=== PATIENT | female | born 1970 | race African-American/Black ===

== ENCOUNTER 2016-09-15 21:36 | Inpatient (IN) | payer MEDICAID ==
[~2016-09-15] VITALS: Ht 166.4 cm; Wt 61.0 kg
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
[2016-09-15] MEDS ORDERED: IV NORMAL SALINE 1000 ML BAG IV ONE (22:15)
[2016-09-15] MEDS ORDERED: CEFTRIAXONE 1 G in IV DEXTROSE 5% 50 ML IV ONE (22:15)
[2016-09-15] MEDS ORDERED: AZITHROMYCIN IV 500 MG in IV DEXTROSE 5% 250 ML IV ONE (22:15)
[2016-09-15] MEDS ORDERED: ALBUTEROL SULFATE 2.5 MG/3 ML NEBU NEB ONE ×2 (22:15→22:45)
[2016-09-15] MEDS ORDERED: ALBUTEROL SULFATE 2.5 MG/3 ML NEBU ONE ×2 (22:25→22:44)
[2016-09-15 23:43] LABS: CREATININE 0.9 mg/dL (0.6-1.3); POTASSIUM 3.6 mmol/L (3.5-5.1)
[2016-09-15 23:49] LABS: BILIRUBIN,DIRECT 0.1 mg/dL (0.0-0.2); BILIRUBIN,TOTAL 0.4 mg/dL (0.2-1.0); TOTAL PROTEIN, SERUM 9.2 g/dL (6.4-8.2)
[2016-09-16] MEDS ORDERED: ONDANSETRON 4 MG/2 ML VIAL IV ONE
[2016-09-16] MEDS ORDERED: MORPHINE SULFATE 2 MG/1 ML DISP.SYRIN IM ONE
[2016-09-16 00:01] LABS: EOSINOPHILS % (AUTO) 0.1 % (0.0-7.0); HEMATOCRIT 42.6 % (37-47); HEMOGLOBIN 13.9 G/DL (12.0-16.0); LYMPHOCYTES # (AUTO) 2.5 K/UL (0.8-4.8); LYMPHOCYTES % (AUTO) 15.6 % (20.5-51.5); MEAN CORPUSCULAR HEMOGLOBIN 30.3 UUG (27.0-31.0); MEAN CORPUSCULAR HGB CONC 33 g/dL (32.0-37.0); MONOCYTES # (AUTO) 0.8 K/UL (0.1-1.30); MONOCYTES % (AUTO) 5.2 % (0.0-11.0); NEUTROPHILS # (AUTO) 12.4 K/UL (1.8-8.9); NEUTROPHILS % (AUTO) 79.1 % (38.5-71.5); PLATELET COUNT (AUTO) 247 K/UL (150-450); RED BLOOD CELL COUNT(AUTO) 4.58 MIL/UL (4.2-5.4); WHITE BLOOD COUNT (AUTO) 15.7 K/UL (4.0-11.2)
[2016-09-16 00:06] LABS: BAND % (MANUAL) 4 % (0-10); LYMPHOCYTES % (MANUAL) 18 % (20-40); MONOCYTES % (MANUAL) 7 % (2-10); NEUTROPHILS % (MANUAL) 71 % (42-75)
[2016-09-16] MEDS ORDERED: ONDANSETRON 4 MG/2 ML VIAL ONE (00:12)
[2016-09-16] MEDS ORDERED: CEFTRIAXONE 1 G VIAL ONE (00:12)
[2016-09-16] MEDS ORDERED: MORPHINE SULFATE 2 MG/1 ML DISP.SYRIN ONE (00:12)
--- NOTE | 2016-09-16 00:16 | NUR ---
BATOOL IV APPEARS TO BE INFILTRATED; PT HAS SWELLING AND PAIN AT IV SITE; IV REMOVED AND PRESSURE DRESSING APPLIED AND WARM COMPRESS PLACED. NOTIFIED
[2016-09-16] MEDS ORDERED: HYDROMORPHONE 1 MG/1 ML DISP.SYRIN IV ONE (00:45)
[2016-09-16] MEDS ORDERED: HYDROMORPHONE 1 MG/1 ML DISP.SYRIN ONE (00:55)
--- NOTE | 2016-09-16 00:58 | NUR ---
Call placed to [facility], Dr. Olmos will be paged.
[2016-09-16] MEDS ORDERED: IV NS 1000 ML 1,000 ML IV PRN (01:04)
[2016-09-16] MEDS ORDERED: ONDANSETRON 4 MG/2 ML VIAL IV PRN (01:15)
[2016-09-16] MEDS ORDERED: MAGNESIUM HYDROXIDE 30 ML LIQUID UDC PO PRN (01:15)
[2016-09-16] MEDS ORDERED: ALBUTEROL SULFATE 2.5 MG/3 ML NEBU NEB PRN (01:15)
[2016-09-16] MEDS ORDERED: CEFTRIAXONE 1 G in IV DEXTROSE 5% 50 ML IV SCH ×2 (01:15→21:00)
[2016-09-16] MEDS ORDERED: ACETAMINOPHEN 325 MG TABLET PO PRN (01:15)
[2016-09-16] MEDS ORDERED: Z GUARD REMEDY PASTE 57 GM TUBE TOP PRN (01:15)
[2016-09-16] MEDS ORDERED: AZITHROMYCIN 500 MG VIAL IV ONE (01:17)
[2016-09-16] MEDS ORDERED: IV NORMAL SALINE 1000 ML BAG IV ONE (01:30)
[2016-09-16] MEDS ORDERED: ACETAMINOPHEN ES 500 MG TABLET PO ONE (01:30)
--- NOTE | 2016-09-16 01:40 | NUR ---
Pt. admitted to TELEMETRY 225 , under care of Dr. RAGLAND Belongs List completed. SBAR TO Amrita JUNIOR RN
[2016-09-16] MEDS ORDERED: ACETAMINOPHEN ES 500 MG TABLET ONE (01:42)
--- NOTE | 2016-09-16 01:55 | NUR ---
Admitted patient to Telemetry with admitting DX: PNA. Routine admission care done. Plan of care initiated.
[2016-09-16] MEDS: HYDROCODONE/APAP 5-325MG TABLET PO PRN ×3 (03:58→16:20)
[2016-09-16] MEDS ORDERED: HYDROCODONE/APAP 5-325MG TABLET ONE (04:08)
--- NOTE | 2016-09-16 04:09 | NUR ---
Medicated with [facility] for C/O generalized pain. Will monitor.
--- NOTE | 2016-09-16 05:36 | NUR ---
Still awake. Pain meds effective. No further complaint presented. all needs attended and met. No significant event reported all night. Continue care as planned.
[2016-09-16] MEDS ORDERED: AZITHROMYCIN 250 MG TABLET PO SCH ×3 (07:00→23:00)
[2016-09-16] MEDS ORDERED: PANTOPRAZOLE SODIUM 40 MG TABLET.DR PO SCH (07:17)
--- NOTE | 2016-09-16 07:47 | NUR ---
PATIENT RECEIVED IN ROOM ALERT AWAKE AND ORIENTED IN NO ACUTE DISTRESS. A. FIB WITH HR 97 ON GAUGE CONTROLLER. RESPIRATIONS EVEN AND UNLABORED. PRODUCTIVE COUGH NOTED. IVF RUNNING. IV TO L IJ INTACT AND PATENT.
[2016-09-16 11:47] VITALS: BP 107/72
--- NOTE | 2016-09-16 14:46 | NUR ---
PATIENT SEEN BY DR. JARRELL. DETAILED REPORT GIVEN.
[2016-09-16 15:13] VITALS: BP 93/57
[2016-09-16] MEDS ORDERED: LEVO500T2 PO (16:49)
[2016-09-16] MEDS ORDERED: FLUT1DIS28 IH (16:49)
[2016-09-16] MEDS ORDERED: ALBU6.7H INH (16:49)
--- NOTE | 2016-09-16 17:15 | NUR ---
DISCHARGING PATIENT HOME IN A STABLE CONDITION. VSS. PAIN MANAGED WITH MEDICATION PRESCRIBED. DISCHARGE INSTRUCTION PROVIDED. LIST OF BELONGING SIGNED AND ALL WAS TAKEN. IV REMOVED, PRESSURE APPLIED AND NO BLEEDING NOTED, DRESSING APPLIED. PATIENT REFUSED TO SPEAK TO PHARMACIST REGARDING NEW PRESCRIPTIONS. LEAVING VIA PRIVATE TRANSPORTATION.
== END 2016-09-16 17:05 | disposition home or self-care (01) | DRG 139 ==
LOC: ER 21:41 → TELE 09-16 01:25
PROVIDERS: ADMIT Internal Medicine; ATTEND Internal Medicine
DX: J18.9 Pneumonia, unspecified organism (principal); M32.9 Systemic lupus erythematosus, unspecified; Z86.74 Personal history of sudden cardiac arrest; E87.1 Hypo-osmolality and hyponatremia; J44.0 Chronic obstructive pulmonary disease with (acute) lower respiratory infection; F17.210 Nicotine dependence, cigarettes, uncomplicated; Z88.8 Allergy status to other drugs, medicaments and biological substances; Z98.890 Other specified postprocedural states; Z79.899 Other long term (current) drug therapy; Z86.19 Personal history of other infectious and parasitic diseases
CPT/HCPCS: 36415; 70030-TC; 71010; 83605; 85025; 85730; 87040; 87806; 93005; A4217; J0456; J0696; J1170; J2270; J2405; J7030; J7060; Q0144

== ENCOUNTER 2018-08-01 22:46 | Inpatient (IN) | payer MEDICAID, OTHER ==
[~2018-08-01] VITALS: Ht 165.1 cm; Wt 54.4 kg
[~2018-08-01 22:46] MED LIST: ALBU6.7H INH; FLUT1DIS28 IH; LEVO500T2 PO
[2018-08-01] MEDS ORDERED: methylPREDNISolone SOD SUCC 125 MG/2 ML VIAL IV ONE (23:15)
[2018-08-01] MEDS ORDERED: IV NORMAL SALINE 1000 ML BAG IV ONE (23:15)
[2018-08-01] MEDS ORDERED: IPRATROPIUM BROMIDE 0.5 MG/2.5 ML NEBU NEB ONE (23:15)
[2018-08-01] MEDS ORDERED: ALBUTEROL SULFATE 2.5 MG/3 ML NEBU NEB ONE (23:15)
[2018-08-01] MEDS ORDERED: ALBUTEROL SULFATE 2.5 MG/3 ML NEBU ONE (23:21)
[2018-08-01] MEDS ORDERED: IPRATROPIUM BROMIDE 0.5 MG/2.5 ML NEBU ONE (23:21)
[2018-08-01 23:36] LABS: BASOPHILS # (AUTO) 0.1 K/uL (0.0-8.0); EOSINOPHILS # (AUTO) 0.4 K/uL (0.0-0.7); EOSINOPHILS % (AUTO) 6.4 % (0.0-7.0); HEMATOCRIT 34.5 % (31.2-41.9); HEMOGLOBIN 11.3 g/dL (10.9-14.3); LYMPHOCYTES # (AUTO) 1.9 K/uL (20.0-40.0); LYMPHOCYTES % (AUTO) 30.4 % (20.5-51.5); MEAN CORPUSCULAR HEMOGLOBIN 29.1 uug (24.7-32.8); MEAN CORPUSCULAR HGB CONC 33 g/dL (32.3-35.6); MEAN CORPUSCULAR VOLUME 89.1 fL (75.5-95.3); MONOCYTES # (AUTO) 0.6 K/uL (2.0-10.0); MONOCYTES % (AUTO) 9.6 % (0.0-11.0); NEUTROPHILS # (AUTO) 3.3 K/uL (1.8-8.9); NEUTROPHILS % (AUTO) 52.6 % (38.5-71.5); PLATELET COUNT (AUTO) 345 K/uL (179-408); RED BLOOD CELL COUNT(AUTO) 3.88 MIL/uL (3.63-4.92); WHITE BLOOD COUNT (AUTO) 6.4 K/uL (3.8-11.8)
[2018-08-01 23:41] LABS: CREATININE 0.8 mg/dL (0.6-1.3); POTASSIUM 3.7 mmol/L (3.5-5.1)
[2018-08-01 23:54] LABS: BILIRUBIN,DIRECT 0.2 mg/dL (0.0-0.2); BILIRUBIN,TOTAL 0.3 mg/dL (0.2-1.0); TOTAL PROTEIN, SERUM 7.7 g/dL (6.4-8.2)
[2018-08-02] MEDS ORDERED: methylPREDNISolone SOD SUCC 125 MG/2 ML VIAL ONE (00:04)
[2018-08-02] MEDS ORDERED: ACETAMINOPHEN 325 MG TABLET PO PRN (01:00)
[2018-08-02] MEDS ORDERED: CEFTRIAXONE 1 G in IV DEXTROSE 5% 50 ML IV ONE (01:00)
[2018-08-02] MEDS ORDERED: ONDANSETRON 4 MG/2 ML VIAL IV PRN (01:00)
[2018-08-02] MEDS ORDERED: AZITHROMYCIN IV 500 MG in IV DEXTROSE 5% 250 ML IV ONE (01:00)
[2018-08-02] MEDS ORDERED: MAGNESIUM HYDROXIDE 30 ML LIQUID UDC PO PRN (01:00)
[2018-08-02] MEDS ORDERED: HYDROCODONE/APAP 5-325MG TABLET PO PRN (01:00)
[2018-08-02] MEDS: AZITHROMYCIN IV 500 MG in IV DEXTROSE 5% 250 ML IV SCH (01:00)
[2018-08-02] MEDS ORDERED: VALA100026 PO (01:07)
[2018-08-02] MEDS ORDERED: BICT1TAB PO (01:07)
[2018-08-02] MEDS ORDERED: PREG300C PO (01:07)
[2018-08-02] MEDS ORDERED: DORA100T PO (01:07)
[2018-08-02] MEDS ORDERED: RANI150T8 PO (01:07)
[2018-08-02] MEDS ORDERED: VORI200T4 PO (01:07)
[2018-08-02] MEDS ORDERED: ARIP10TA9 PO (01:07)
[2018-08-02] MEDS ORDERED: SERT100T PO (01:07)
[2018-08-02] MEDS ORDERED: SULF1TAB48 PO (01:07)
[2018-08-02] MEDS ORDERED: AZITHROMYCIN 500 MG VIAL IV ONE (01:42)
[2018-08-02] MEDS ORDERED: CEFTRIAXONE 1 G VIAL ONE (01:42)
[2018-08-02] MEDS: CEFTRIAXONE 1 G in IV DEXTROSE 5% 50 ML IV SCH (01:50)
[2018-08-02 05:31] VITALS: BP 113/78
[2018-08-02] MEDS: PANTOPRAZOLE SODIUM 40 MG TABLET.DR PO SCH (06:13)
[2018-08-02 07:23] LABS: MAGNESIUM 1.9 mg/dL (1.8-2.4)
[2018-08-02 07:53] LABS: THYROID STIMULATING HORMONE 0.408 mIU/mL (0.358-3.740)
[2018-08-02] MEDS ORDERED: FLUTICASONE/SALMETEROL 250/50 INHALER IH SCH (09:00)
[2018-08-02] MEDS: FLUTICASONE/VILANTEROL 1 EACH BLST.W.DEV INH SCH (09:31)
[2018-08-02] MEDS: IPRATROPIUM BROMIDE 0.5 MG/2.5 ML NEBU NEB PRN ×3 (09:39→21:06)
[2018-08-02] MEDS: ALBUTEROL SULFATE 2.5 MG/3 ML NEBU NEB PRN ×3 (09:39→21:06)
[2018-08-02 11:00] VITALS: BP 123/67
[2018-08-02] MEDS: GUAIFENESIN/DEXTROMETHORPHAN 5 ML UDC PO PRN (12:57)
[2018-08-02 15:36] VITALS: BP 117/75
[2018-08-02] MEDS: MORPHINE SULFATE 2 MG/1 ML DISP.SYRIN IV PRN ×2 (17:38→22:20)
[2018-08-02] MEDS ORDERED: MISCELLANEOUS MED XX PRN ×4 (17:45→18:30)
[2018-08-02 20:00] VITALS: BP 126/78
[2018-08-02] MEDS ORDERED: ACYCLOVIR 200 MG CAPSULE PO ONE (20:45)
[2018-08-02] MEDS: ALPRAZOLAM 0.5 MG TABLET PO PRN (21:22)
[2018-08-02] MEDS: ARIPIPRAZOLE 10 MG TABLET PO SCH (21:22)
[2018-08-03] VITALS: BP 120/80
[2018-08-03] MEDS: CEFTRIAXONE 1 G in IV DEXTROSE 5% 50 ML IV SCH (01:37)
[2018-08-03] MEDS: AZITHROMYCIN IV 500 MG in IV DEXTROSE 5% 250 ML IV SCH (01:54)
[2018-08-03 04:00] VITALS: BP 125/86
[2018-08-03] MEDS: PANTOPRAZOLE SODIUM 40 MG TABLET.DR PO SCH (06:11)
[2018-08-03 06:59] LABS: BASOPHILS % (AUTO) 0.4 % (0.0-2.0); EOSINOPHILS # (AUTO) 0.1 K/uL (0.0-0.7); EOSINOPHILS % (AUTO) 0.7 % (0.0-7.0); HEMATOCRIT 33.2 % (31.2-41.9); HEMOGLOBIN 10.8 g/dL (10.9-14.3); LYMPHOCYTES # (AUTO) 1.3 K/uL (20.0-40.0); MEAN CORPUSCULAR HEMOGLOBIN 29.6 uug (24.7-32.8); MEAN CORPUSCULAR HGB CONC 33 g/dL (32.3-35.6); MEAN CORPUSCULAR VOLUME 90.9 fL (75.5-95.3); MONOCYTES # (AUTO) 0.6 K/uL (2.0-10.0); MONOCYTES % (AUTO) 8.3 % (0.0-11.0); NEUTROPHILS # (AUTO) 5.6 K/uL (1.8-8.9); NEUTROPHILS % (AUTO) 73.6 % (38.5-71.5); PLATELET COUNT (AUTO) 330 K/uL (179-408); RED BLOOD CELL COUNT(AUTO) 3.65 MIL/uL (3.63-4.92); WHITE BLOOD COUNT (AUTO) 7.6 K/uL (3.8-11.8)
[2018-08-03 07:11] LABS: BILIRUBIN,TOTAL 0.2 mg/dL (0.2-1.0); CREATININE 0.7 mg/dL (0.6-1.3); MAGNESIUM 1.6 mg/dL (1.8-2.4); PHOSPHOROUS 2.8 mg/dL (2.5-4.9); POTASSIUM 3.7 mmol/L (3.5-5.1); TOTAL PROTEIN, SERUM 6.8 g/dL (6.4-8.2)
[2018-08-03] MEDS: SERTRALINE HCL 100 MG TABLET PO SCH (08:49)
[2018-08-03] MEDS: SULFAMETH/TRIMETH 800/160 MG TABLET PO SCH (08:49)
[2018-08-03] MEDS: FLUTICASONE/VILANTEROL 1 EACH BLST.W.DEV INH SCH (08:51)
[2018-08-03] MEDS ORDERED: DORAVIRINE 100 MG PO SCH (09:00)
[2018-08-03] MEDS ORDERED: VORICONAZOLE 200 MG TABLET PO SCH (09:00)
[2018-08-03] MEDS: MORPHINE SULFATE 2 MG/1 ML DISP.SYRIN IV PRN (09:09)
[2018-08-03] MEDS: GUAIFENESIN/DEXTROMETHORPHAN 5 ML UDC PO PRN (09:09)
[2018-08-03 11:00] VITALS: BP 124/81
[2018-08-03] MEDS: MAGNESIUM SULFATE/D5W 100 ML IV SCH ×2 (12:49→14:26)
[2018-08-03] MEDS: VORICONAZOLE 200 MG TABLET PO SCH ×2 (12:57→20:28)
[2018-08-03] MEDS: PREGABALIN 100 MG CAPSULE PO SCH ×2 (14:29→20:28)
[2018-08-03] MEDS: VALACYCLOVIR HCL 500 MG TABLET PO SCH ×2 (14:29→20:28)
[2018-08-03] MEDS: ALBUTEROL SULFATE 2.5 MG/3 ML NEBU NEB PRN (15:14)
[2018-08-03] MEDS: IPRATROPIUM BROMIDE 0.5 MG/2.5 ML NEBU NEB PRN (15:14)
[2018-08-03 15:30] VITALS: BP 126/87
[2018-08-03 20:00] VITALS: BP 124/84
[2018-08-03] MEDS: ARIPIPRAZOLE 10 MG TABLET PO SCH (20:27)
[2018-08-04] MEDS: CEFTRIAXONE 1 G in IV DEXTROSE 5% 50 ML IV SCH (00:30)
[2018-08-04] MEDS: AZITHROMYCIN IV 500 MG in IV DEXTROSE 5% 250 ML IV SCH (01:17)
[2018-08-04 03:52] LABS: *BASOS 0 % (Not Estab.); *EOS 3 % (Not Estab.); *EOS ABSOLUTE 0.2 x10E3/uL (0.0-0.4); *HCT 34.8 % (34.0-46.6); *HGB 11.6 g/dL (11.1-15.9); *IMMATURE GRANULOCYTES 0 % (Not Estab.); *LYMPHOCYTES 22 % (Not Estab.); *LYMPHOCYTES ABSOLUTE 1.3 x10E3/uL (0.7-3.1); *MCH 29.4 pg (26.6-33.0); *MCHC 33.3 g/dL (31.5-35.7); *MCV 88 fL (79-97); *MONOCYTES 11 % (Not Estab.); *MONOCYTES ABSOLUTE 0.7 x10E3/uL (0.1-0.9); *NEUTROPHILS 64 % (Not Estab.); *NEUTROPHILS ABSOLUTE 3.8 x10E3/uL (1.4-7.0); *PLT 396 x10E3/uL (150-450); *RBC 3.94 x10E6/uL (3.77-5.28); *RDW 15.4 % (12.3-15.4)
[2018-08-04 04:00] VITALS: BP 107/73
[2018-08-04] MEDS: PANTOPRAZOLE SODIUM 40 MG TABLET.DR PO SCH (06:01)
[2018-08-04 07:03] LABS: HEMATOCRIT 37.6 % (31.2-41.9); HEMOGLOBIN 12.1 g/dL (10.9-14.3); MEAN CORPUSCULAR HEMOGLOBIN 28.8 uug (24.7-32.8); MEAN CORPUSCULAR HGB CONC 32 g/dL (32.3-35.6); MEAN CORPUSCULAR VOLUME 89.3 fL (75.5-95.3); RED BLOOD CELL COUNT(AUTO) 4.22 MIL/uL (3.63-4.92); WHITE BLOOD COUNT (AUTO) 6.4 K/uL (3.8-11.8)
[2018-08-04 07:04] LABS: BASOPHILS % (AUTO) 0.6 % (0.0-2.0); EOSINOPHILS # (AUTO) 0.3 K/uL (0.0-0.7); EOSINOPHILS % (AUTO) 4.4 % (0.0-7.0); LYMPHOCYTES # (AUTO) 1.4 K/uL (20.0-40.0); LYMPHOCYTES % (AUTO) 22.2 % (20.5-51.5); MONOCYTES # (AUTO) 0.7 K/uL (2.0-10.0); MONOCYTES % (AUTO) 10.8 % (0.0-11.0); PLATELET COUNT (AUTO) 335 K/uL (179-408)
[2018-08-04 07:15] LABS: CREATININE 0.7 mg/dL (0.6-1.3); MAGNESIUM 1.8 mg/dL (1.8-2.4); PHOSPHOROUS 3.1 mg/dL (2.5-4.9); POTASSIUM 3.9 mmol/L (3.5-5.1)
[2018-08-04] MEDS: SULFAMETH/TRIMETH 800/160 MG TABLET PO SCH (08:59)
[2018-08-04] MEDS: FLUTICASONE/VILANTEROL 1 EACH BLST.W.DEV INH SCH (08:59)
[2018-08-04] MEDS: SERTRALINE HCL 100 MG TABLET PO SCH (08:59)
[2018-08-04] MEDS: VORICONAZOLE 200 MG TABLET PO SCH ×2 (09:00→21:31)
[2018-08-04] MEDS: VALACYCLOVIR HCL 500 MG TABLET PO SCH ×2 (09:00→21:33)
[2018-08-04] MEDS: MORPHINE SULFATE 2 MG/1 ML DISP.SYRIN IV PRN ×2 (09:24→18:33)
[2018-08-04] MEDS: PREGABALIN 100 MG CAPSULE PO SCH ×2 (09:30→21:31)
[2018-08-04 11:32] VITALS: BP 105/72
[2018-08-04 14:09] LABS: *HELPER T-LYMPH MARKR(CD4)ABSO 239 /uL (359-1519); *HELPER T-LYNPH MARKER CD4)% 18.4 % (30.8-58.5)
[2018-08-04] MEDS: ALBUTEROL SULFATE 2.5 MG/3 ML NEBU NEB PRN ×2 (15:37→19:06)
[2018-08-04] MEDS: IPRATROPIUM BROMIDE 0.5 MG/2.5 ML NEBU NEB PRN ×2 (15:37→19:06)
[2018-08-04 15:40] VITALS: BP 114/70
[2018-08-04] MEDS: GUAIFENESIN/DEXTROMETHORPHAN 5 ML UDC PO PRN (18:07)
[2018-08-04] MEDS: ALPRAZOLAM 0.5 MG TABLET PO PRN (18:15)
[2018-08-04 20:00] VITALS: BP 105/80
[2018-08-04] MEDS: ARIPIPRAZOLE 10 MG TABLET PO SCH (21:31)
[2018-08-04] MEDS: BIKTARVY PO SCH (21:33)
[2018-08-04] MEDS: PIFELTRO 100 MG PO SCH (21:33)
[2018-08-05] MEDS: CEFTRIAXONE 1 G in IV DEXTROSE 5% 50 ML IV SCH (00:07)
[2018-08-05] MEDS: AZITHROMYCIN IV 500 MG in IV DEXTROSE 5% 250 ML IV SCH (01:41)
[2018-08-05 04:51] VITALS: BP 107/68
[2018-08-05] MEDS: PANTOPRAZOLE SODIUM 40 MG TABLET.DR PO SCH (06:03)
[2018-08-05] MEDS: FLUTICASONE/VILANTEROL 1 EACH BLST.W.DEV INH SCH (09:15)
[2018-08-05] MEDS: SULFAMETH/TRIMETH 800/160 MG TABLET PO SCH (09:15)
[2018-08-05] MEDS: PREGABALIN 100 MG CAPSULE PO SCH (09:15)
[2018-08-05] MEDS: SERTRALINE HCL 100 MG TABLET PO SCH (09:15)
[2018-08-05] MEDS: VORICONAZOLE 200 MG TABLET PO SCH (09:15)
[2018-08-05] MEDS: BIKTARVY PO SCH (09:16)
[2018-08-05] MEDS: PIFELTRO 100 MG PO SCH (09:16)
[2018-08-05] MEDS: VALACYCLOVIR HCL 500 MG TABLET PO SCH (09:16)
[2018-08-05 09:19] VITALS: BP 118/67
[2018-08-05] MEDS: IPRATROPIUM BROMIDE 0.5 MG/2.5 ML NEBU NEB PRN (09:46)
[2018-08-05] MEDS: ALBUTEROL SULFATE 2.5 MG/3 ML NEBU NEB PRN (09:46)
[2018-08-05] MEDS ORDERED: BUPR1PAT3 TP (10:29)
[2018-08-05 11:30] VITALS: BP 124/70
[2018-08-05] MEDS ORDERED: LEVO500T90 PO (11:31)
[2018-08-05] MEDS: GUAIFENESIN/DEXTROMETHORPHAN 5 ML UDC PO PRN (13:15)
== END 2018-08-05 14:30 | disposition home or self-care (01) | DRG 140 ==
LOC: ER 22:47 → TELE3 08-02 02:12 → MEDSURG3 08-03 11:55
PROVIDERS: ADMIT Nurse Practitioner Acute Care; ATTEND Internal Medicine
DX: J44.0 Chronic obstructive pulmonary disease with (acute) lower respiratory infection (principal); J15.9 Unspecified bacterial pneumonia; M32.9 Systemic lupus erythematosus, unspecified; Z86.74 Personal history of sudden cardiac arrest; F17.210 Nicotine dependence, cigarettes, uncomplicated; Z91.19 Patient's noncompliance with other medical treatment and regimen
CPT/HCPCS: 36415; 70030-TC; 71045; 83735; 84100; 84443; 85025; 86361; 87040; 87400; 87536; 93005; 94640; A4663; G0378; J0456; J0696; J2270; J2930; J3475; J3490; J3590; J7060

== ENCOUNTER 2021-12-28 15:47 | Inpatient (IN) | payer MEDICAID, OTHER ==
[~2021-12-28] VITALS: Ht 165.1 cm; Wt 53.1 kg
[~2021-12-28 15:47] MED LIST changes: -ALBU6.7H INH; +ALBU6.7H9 INH; +ARIP10TA9 PO; +BICT1TAB PO; +BUPR1PAT3 TP; +DORA100T PO; -LEVO500T2 PO; +LEVO500T90 PO; +PREG300C PO; +RANI150T8 PO; +SERT100T PO; +SULF1TAB48 PO; +VALA100026 PO; +VORI200T4 PO
[2021-12-28] MEDS ORDERED: CEFEPIME HCL 1 G in IV DEXTROSE 5% 50 ML IV ONE (16:15)
[2021-12-28] MEDS ORDERED: ACETAMINOPHEN ES 500 MG TABLET PO ONE (16:15)
[2021-12-28] MEDS ORDERED: VANCOMYCIN IV 1,000 MG in IV DEXTROSE 5% 250 ML IV ONE (16:15)
[2021-12-28] MEDS ORDERED: IV NORMAL SALINE 1000 ML BAG IV ONE (16:15)
[2021-12-28 16:47] LABS: HEMATOCRIT 40.1 % (31.2-41.9); MEAN CORPUSCULAR HEMOGLOBIN 34.2 uug (24.7-32.8); MEAN CORPUSCULAR VOLUME 99.7 fL (75.5-95.3); PLATELET COUNT (AUTO) 192 K/uL (179-408)
[2021-12-28 16:50] LABS: CARBON DIOXIDE 29 mmol/L (21-32); CHLORIDE 100 mmol/L (98-107); CREATININE 0.9 mg/dL (0.6-1.3); GLUCOSE 86 mg/dL (74-106); POTASSIUM 3.4 mmol/L (3.5-5.1); UREA NITROGEN, BLOOD 9 mg/dL (7-18)
[2021-12-28 17:01] LABS: ALANINE AMINOTRANSFERASE 26 U/L (14-59); ALKALINE PHOSPHATASE 73 U/L (50-136); ASPARTATE AMINOTRANSFERASE 22 U/L (15-37); BILIRUBIN,DIRECT 0.2 mg/dL (0.0-0.2); BILIRUBIN,TOTAL 0.8 mg/dL (0.2-1.0)
[2021-12-28 17:22] LABS: *BILIRUBIN,URIN NEGATIVE (NEGATIVE); *BLOOD, URINE 3+ (NEGATIVE); *CLARITY,URINE CLEAR (CLEAR); *COLOR,URINE YELLOW (YELLOW); *KETONES,URINE NEGATIVE (NEGATIVE); *UROBILINOGEN,URINE 0.2 E.U./dl (NORMAL); LEUKOCYTE ESTERASE ,URINE 1+ (NEGATIVE); NITRITE, URINE NEGATIVE (NEGATIVE); PH,URINE 7.5 (5.0-8.0); UGLUCOSE NEGATIVE (NEGATIVE)
[2021-12-28] MEDS ORDERED: CEFEPIME HCL 1 G VIAL ONE ×2 (17:26→23:44)
[2021-12-28] MEDS ORDERED: VANCOMYCIN IV 200 ML ONE (17:26)
[2021-12-28 17:29] LABS: BACTERIA,URINE FEW /HPF (NONE SEEN); SQUAMOUS EPITHELIAL CELL,UR FEW /HPF (NONE SEEN)
--- NOTE | 2021-12-28 17:30 | NUR ---
Per housekeeper, midline nurse to come at 8PM.
--- NOTE | 2021-12-28 18:57 | NUR ---
Contacted [facility] for Panal call. Dr Pyle is corporate communications associate. - Av (student nurse)
--- NOTE | 2021-12-28 19:10 | NUR ---
Received report from Lamar HOFF.
[2021-12-28] MEDS ORDERED: FAMO40TA7 PO (19:33)
[2021-12-28] MEDS ORDERED: FOLI1TAB94 PO (19:33)
[2021-12-28] MEDS ORDERED: GABA600T12 PO (19:33)
[2021-12-28] MEDS ORDERED: MULT-596 PO (19:33)
[2021-12-28] MEDS ORDERED: FLUT1BLS6 PO (19:33)
[2021-12-28] MEDS ORDERED: LINA145C PO (19:33)
[2021-12-28] MEDS ORDERED: MAGN400C PO (19:33)
[2021-12-28] MEDS ORDERED: MV-M1TAB18 PO (19:33)
--- NOTE | 2021-12-28 19:45 | NUR ---
Dr. Youngblood on panel call with Dr. Pyle.
[2021-12-28] MEDS ORDERED: ACETAMINOPHEN 325 MG TABLET PO PRN (20:00)
[2021-12-28] MEDS ORDERED: ONDANSETRON 4 MG/2 ML VIAL IV PRN (20:00)
[2021-12-28] MEDS ORDERED: MAGNESIUM HYDROXIDE 30 ML LIQUID UDC PO PRN (20:00)
[2021-12-28] MEDS ORDERED: HYDROCODONE/APAP 5-325MG TABLET PO PRN (20:00)
[2021-12-28] MEDS ORDERED: REMEDY ESSENTIAL ZINC PASTE 113 GM TP PRN (20:00)
--- NOTE | 2021-12-28 20:18 | NUR ---
Midline nurse at bedside.
[2021-12-28] MEDS ORDERED: SWABABLE VALVE TRANSFER SET EA MC ONE (20:33)
[2021-12-28] MEDS ORDERED: IV NORMAL SALINE 250 ML IV ONE (20:33)
[2021-12-28] MEDS ORDERED: IOHEXOL 350 100 ML INFUS..BTL ONE (20:33)
--- NOTE | 2021-12-28 20:45 | NUR ---
Patient taken down for CT.
--- NOTE | 2021-12-28 21:25 | NUR ---
Pt back from CT.
--- NOTE | 2021-12-28 22:25 | NUR ---
Report given to Tammi HOFF.
--- NOTE | 2021-12-28 22:55 | NUR ---
Pt. admitted to TELE rm 319, under care of Dr. Pyle Belongs List completed Tammi RN aware of patient's arrival to unit.
[2021-12-28] MEDS: DOXYCYCLINE HYCLATE 100 MG TABLET PO SCH (23:26)
--- NOTE | 2021-12-28 23:50 | NUR ---
Admitted 51 yr old female with diagnosis of Pneumonia. S/P Lap Hysterectomy day prior to admission. Noted productive cough. Denies pain or discomfort. AAO x 4. Ambulatory. On room air sating at 99%. Noted blister on one of the incision. Changed dressing for all 6 incisions. All orders carried out. Comfort measures provided, call light within reach. Safety precautions observed. Will continue to monitor.
[2021-12-29 00:13] VITALS: BP 100/61
[2021-12-29] MEDS ORDERED: CEFEPIME HCL 1 G in IV DEXTROSE 5% 50 ML IV SCH (02:00)
[2021-12-29] MEDS: IV NS 1000 ML 1,000 ML IV PRN ×2 (02:32→17:37)
[2021-12-29 04:57] VITALS: BP 98/58
[2021-12-29] MEDS: PANTOPRAZOLE SODIUM 40 MG TABLET.DR PO SCH (06:09)
[2021-12-29 07:08] LABS: HEMATOCRIT 37.5 % (31.2-41.9); MEAN CORPUSCULAR HEMOGLOBIN 33.9 uug (24.7-32.8); MEAN CORPUSCULAR VOLUME 99.5 fL (75.5-95.3); PLATELET COUNT (AUTO) 190 K/uL (179-408)
[2021-12-29 07:31] LABS: CREATININE 0.7 mg/dL (0.6-1.3); MAGNESIUM 1.5 mg/dL (1.8-2.4); POTASSIUM 3.8 mmol/L (3.5-5.1)
[2021-12-29] MEDS: FOLIC ACID 1 MG TABLET PO SCH (08:28)
[2021-12-29] MEDS: MULTIVITAMINS,THERAPEUTIC TABLET PO SCH (08:28)
[2021-12-29] MEDS: DOXYCYCLINE HYCLATE 100 MG TABLET PO SCH ×2 (08:28→20:48)
[2021-12-29] MEDS: CHOLECALCIFEROL 1,000 UNIT TABLET PO SCH (08:28)
[2021-12-29] MEDS ORDERED: Medication Not On Formulary EA (Mv-Mn/Iron/FA/Herbal Cmplx#190 (Vitamin D3 Complete Capl PO SCH (09:00)
[2021-12-29] MEDS ORDERED: GABAPENTIN 300 MG CAPSULE PO ONE (09:00)
[2021-12-29] MEDS: CEFEPIME HCL 1 G in IV DEXTROSE 5% 50 ML IV SCH ×2 (09:29→17:03)
--- NOTE | 2021-12-29 10:00 | NUR ---
MAG LEVEL IS 1.5 WITH NE REPLACEMENTS ORDERS AND NOTED.
[2021-12-29] MEDS ORDERED: CHOL200026 PO (10:39)
[2021-12-29] MEDS: MAGNESIUM SULFATE/D5W 100 ML IV SCH ×2 (11:03→13:07)
[2021-12-29] MEDS ORDERED: GABA600T12 PO (11:14)
[2021-12-29] MEDS ORDERED: DOCU-141 PO (11:20)
[2021-12-29 11:32] VITALS: BP 98/61
--- NOTE | 2021-12-29 12:30 | NUR ---
DR WYLIE HERE AND SEEN PATIENT WITH NO NEW ORDERS AT THIS TIME PATIENT HAS NUMEROUS REQUEST AND SHE NOTIFIED THE DOCTOR AND SHE STATED WILL TAKE CARE OF IT.
[2021-12-29] MEDS: ALBUTEROL SULFATE 2.5 MG/ 0.5 ML NEBU NEB PRN ×2 (13:21→19:25)
--- NOTE | 2021-12-29 13:45 | NUR ---
SPUTUM SPECIMEN OBTAINED AND SENT TO THE LAB ORDERED.
--- NOTE | 2021-12-29 14:00 | NUR ---
PATIENT STATED THAT WHEN SHE WIPED HER SELF SHE FELT LIKE HER VAGINA/LABIA INCISION HAS RIPPED BECAUSE SHE SAW SOME BLOOD ON THE TISSUE PAPER SO I CHECKED HER VAGINAL AREA WITH A FLASH LIGHT FOUND A TOTAL OF 6 STITCHES AND NO SIGN OF BLOOD AT THIS TIME REASSURED PATIENT THAT THERE WAS NO BLOOD SEEN WILL CONTINUE TO OBSERVE AND NOTIFY MD IF NEEDED.
[2021-12-29] MEDS: GUAIFENESIN/CODEINE 5 ML LIQUID UDC PO PRN ×2 (14:58→22:50)
[2021-12-29 16:00] VITALS: BP 109/65
--- NOTE | 2021-12-29 17:46 | NUR ---
REMAIN ON ATB ORDERED WITH NO ADVERSE OR ALLERGIC REACTIONS AT THIS TIME ON IVF ORDERED MID LINE REMAIN INTACT NOT IN DISTRESS AT THIS TIME.
[2021-12-29 20:00] VITALS: BP 109/68
[2021-12-29] MEDS: DOCUSATE SODIUM 100 MG CAPSULE PO SCH (20:48)
[2021-12-29] MEDS ORDERED: GABAPENTIN 300 MG CAPSULE PO SCH (21:00)
[2021-12-30] MEDS: CEFEPIME HCL 1 G in IV DEXTROSE 5% 50 ML IV SCH ×3 (02:06→17:07)
[2021-12-30 03:00] VITALS: BP 109/68
[2021-12-30] MEDS: GUAIFENESIN/CODEINE 5 ML LIQUID UDC PO PRN (05:10)
[2021-12-30] MEDS: ALBUTEROL SULFATE 2.5 MG/ 0.5 ML NEBU NEB PRN ×2 (05:19→11:04)
[2021-12-30 05:32] VITALS: BP 100/70
[2021-12-30] MEDS: PANTOPRAZOLE SODIUM 40 MG TABLET.DR PO SCH (06:16)
[2021-12-30 06:23] LABS: HEMATOCRIT 37.8 % (31.2-41.9); MEAN CORPUSCULAR HEMOGLOBIN 34.2 uug (24.7-32.8); MEAN CORPUSCULAR VOLUME 99.8 fL (75.5-95.3); PLATELET COUNT (AUTO) 195 K/uL (179-408)
[2021-12-30 06:43] LABS: CREATININE 0.8 mg/dL (0.6-1.3); MAGNESIUM 1.8 mg/dL (1.8-2.4); PHOSPHOROUS 3.5 mg/dL (2.5-4.9); POTASSIUM 4.3 mmol/L (3.5-5.1)
[2021-12-30] MEDS ORDERED: PIFELTRO 100 MG PO SCH (09:00)
[2021-12-30] MEDS ORDERED: BIKTARVY TABLET PO SCH (09:00)
[2021-12-30] MEDS ORDERED: TRELEGY ELLIPTA INHALER INH SCH (09:00)
[2021-12-30] MEDS ORDERED: LINZESS 145MCG CAPSULE PO SCH (09:00)
[2021-12-30] MEDS ORDERED: GABAPENTIN 300 MG CAPSULE PO SCH (09:00)
--- NOTE | 2021-12-30 09:00 | NUR ---
AWAKE ALERT AND ORIENTED DENIES PAIN OR DISCOMFORTS AT THIS TIME ON ROOM AIR WITH NO SHORTNESS OF BREATH IVF/IV ATB REMAINS IN PROGRESS WITH NO S/S OF INFILTERATION OR ADVERSE EFFECT MID LINE REMAINS INTACT NOT IN DISTRESS WILL CONTINUE TO OBSERVE.
[2021-12-30] MEDS: DOXYCYCLINE HYCLATE 100 MG TABLET PO SCH (09:09)
[2021-12-30] MEDS: MULTIVITAMINS,THERAPEUTIC TABLET PO SCH (09:09)
[2021-12-30] MEDS: FOLIC ACID 1 MG TABLET PO SCH (09:09)
[2021-12-30] MEDS: CHOLECALCIFEROL 1,000 UNIT TABLET PO SCH (09:09)
[2021-12-30] MEDS: DOCUSATE SODIUM 100 MG CAPSULE PO SCH (09:09)
[2021-12-30] MEDS: IV NS 1000 ML 1,000 ML IV PRN (09:34)
[2021-12-30 11:12] VITALS: BP 90/56
[2021-12-30] MEDS ORDERED: MAGNESIUM OXIDE 400 MG TABLET PO SCH (12:00)
--- NOTE | 2021-12-30 15:40 | NUR ---
PATIENT SEEN AND EXAMINED BY DR WYLIE WITH ORDER TO DISCHARGE PATIENT HOME TODAY AND NOTED.PATIENT IS AWARE AND STATED THAT HER SON WILL PICK HER UP THIS EVENING.
[2021-12-30] MEDS ORDERED: LEVO750T46 PO (15:44)
[2021-12-30 16:55] VITALS: BP 100/66
--- NOTE | 2021-12-30 18:30 | NUR ---
discharge instructions and prescriptions given to patient and she was instructed to follow up with her primary doctor within one week and she expressed understanding.patients own medications was retrieved from [facility] pharmacy and returned to patient.awaiting for patients son to pick her up.
--- NOTE | 2021-12-30 19:30 | NUR ---
patient called and verbalized that her son will be here soon to pick her up ,patient [id number], ambulatory she is for d/c home .
--- NOTE | 2021-12-30 19:45 | NUR ---
[facility] son is waiting for her .patient went home with all belongings and prescription and medication form pharmacy . patient deneis any pain or discomfort . no respiratory distress noted breathing even and unlabored . steady of gait .
== END 2021-12-30 19:45 | disposition home or self-care (01) | DRG 139 ==
LOC: ER 15:47 → TELE3 22:25
PROVIDERS: ADMIT Student in an Organized Health Care Education/Training Program; ATTEND Student in an Organized Health Care Education/Training Program
PROC: 05H533Z Insertion of Infusion Device into Right Subclavian Vein, Percutaneous Approach (ICD-10-PCS; principal; 2021-12-28)
PROC: B546ZZA Ultrasonography of Right Subclavian Vein, Guidance (ICD-10-PCS; principal; 2021-12-28)
DX: J15.9 Unspecified bacterial pneumonia (principal); J44.0 Chronic obstructive pulmonary disease with (acute) lower respiratory infection; K76.89 Other specified diseases of liver; E87.6 Hypokalemia; K59.00 Constipation, unspecified; Z79.899 Other long term (current) drug therapy; Z90.49 Acquired absence of other specified parts of digestive tract; Z90.710 Acquired absence of both cervix and uterus
CPT/HCPCS: 36415; 71045; 71275; 83605; 83735; 84100; 84484; 85025; 85730; 87040; 87070; 87086; 93005; 94640; 94664; A4663; A9150; G0378; J0692; J3370; J3475; J7040; Q9967

== ENCOUNTER 2023-05-11 19:42 | Emergency (ER) | payer OTHER ==
[~2023-05-11 19:42] MED LIST changes: -ARIP10TA9 PO; -BUPR1PAT3 TP; +CHOL200026 PO; +DOCU-141 PO; +FAMO40TA7 PO; +FLUT1BLS6 PO; -FLUT1DIS28 IH; +FOLI1TAB94 PO; +GABA600T12 PO; -LEVO500T90 PO; +LEVO750T46 PO; +LINA145C PO; +MAGN400C PO; +MULT-596 PO; -PREG300C PO; -RANI150T8 PO; -SERT100T PO; -SULF1TAB48 PO; -VALA100026 PO; -VORI200T4 PO
== END 2023-05-11 20:36 | disposition left against medical advice (07) ==
LOC: ER 19:45
DX: K92.1 Melena (principal); Z53.21 Procedure and treatment not carried out due to patient leaving prior to being seen by health care provider